=== PATIENT | female | born 1990 | race Caucasian/White ===

== ENCOUNTER 2016-07-27 21:22 | Emergency (ER) | payer MEDICAID, OTHER ==
[~2016-07-27] VITALS: Ht 180.3 cm; Wt 71.6 kg
[~2016-07-27 21:22] MED LIST: ONDA4TAB7 SL; PREN1PAK PO; RANI150T PO
[2016-07-27 21:35] VITALS: BP 103/61; PULSE 87; RESP 18; TEMP 98.3; O2SAT 100
[2016-07-27 23:47] LABS: BLOOD, URINE NEG (NEG); GLUCOSE,URINE NEG (NEG); KETONE, URINE NEG (NEG); NITRITE,URINE NEG (NEG)
[2016-07-27 23:55] LABS: URINE COLOR YELLOW (YELLW/STRAW)
[2016-07-27 23:56] LABS: BACTERIA, URINE MANY /hpf; COMMENT (UR) CULTURE INDICATED; CULTURE IF INDICATED CULTURE INDICATED; RBC, URINE 0-2 /hpf (0-3); SQUAMOUS EPITHELIAL CELL URINE > 8 /hpf (0-5)
[2016-07-28 01:07] VITALS: BP 97/60; PULSE 79; RESP 18; O2SAT 99
[2016-07-28 01:15] LABS: AUTOMATED NEUTROPHIL # 9.4 TH/MM3 (1.8-7.7); BASOPHIL # 0.1 TH/MM3 (0-0.2); BASOPHIL % 0.5 % (0.0-2.0); EOSINOPHIL # 0.1 TH/MM3 (0-0.4); HEMATOCRIT 36.1 % (35.0-46.0); HEMO FLAGS DIFF FINAL; LYMPH % 18.2 % (9.0-44.0); LYMPHOCYTE # 2.3 TH/MM3 (1.0-4.8); MEAN CELL VOLUME 90.1 FL (80.0-100.0); MEAN CORPUSCULAR HEMOGLOBIN 28.8 PG (27.0-34.0); MEAN CORPUSCULAR HGB CONC 31.9 % (32.0-36.0); MONO % 6.7 % (0.0-8.0); NEUT % 73.6 % (16.0-70.0); PLATELET COUNT 299 TH/MM3 (150-450); RED BLOOD COUNT 4.01 MIL/MM3 (4.00-5.30); RED CELL DISTRIBUTION WIDTH 12.2 % (11.6-17.2); WHITE BLOOD COUNT 12.8 TH/MM3 (4.0-11.0)
[2016-07-28] MEDS ORDERED: NITROFURANTOIN MONOHYD MACROCR 100 MG CAP PO ONE (01:45)
[2016-07-28] MEDS ORDERED: MACR100C2 PO (01:50)
--- NOTE | 2016-07-28 01:51 | PD ---
HPI Chief Complaint: Complaint Time Seen by Provider: 00:25 Travel History International Travel<30 days: No Contact w/Intl Traveler<30days: No Traveled to known affect area: No History of Present Illness HPI 26-year-old female presents to the emergency department for abdominal cramping. Patient is 1 para 0 AB 0 at approximately 22 weeks . Last menstrual period was February 22, 2016 with due date of November 28, 2016. Patient was just seen by her [employer]PERATIONS MANAGER 3 weeks ago which time an ultrasound was performed at 19 weeks. Patient has been doing well. Patient has noted some regular pelvic cramping that she states feels somewhat like contractions since . Patient 6 decided to come to the emergency room on Saturday evening. Patient did not contact her [employer] OPERATIONS MANAGER. Patient denies any vaginal discharge or vaginal bleeding. Patient does not note any dysuria frequency urgency flank pain or hematuria. Patient's had no nausea or vomiting. Patient denies fever or chills. Patient states when cramping sensation is present at 5-6/10 in intensity. 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 PFSH Past Medical History Narrative Medical AB 0; no tobacco use, occasional alcohol use; nursing notes reviewed Medical History: Denies Significant Hx Diminished Hearing: No Immunizations Current: Yes Tetanus Vaccination: Unknown Influenza Vaccination: No ?: LMP: 02/22/16 : 1 Para: 0 Past Surgical History Surgical History: No Previous Surgery Social History Alcohol Use: Yes (OCC) Tobacco Use: No (QUIT APR 2015) Substance Use: No Allergies-Medications (Allergen,Severity, Reaction): Coded Allergies: Tramadol (Verified Allergy, Unknown, SKIN REDNESS/ITCHY, 07/09/16) Reported Meds & Prescriptions Reported Meds & Active Scripts Active Macrobid (Nitrofurantoin Monoh/Nitrofur Macro) 100 Mg Cap 100 Mg PO BID 7 Days Citranatal Assure Pack ( W/O Vit A W/ Fe Carbo Pack) 35-1 & 300 Mg Pack 1 Ea PO DAILY 30 day supply. Review of Systems Except as stated in HPI: all other systems reviewed are Neg General / Constitutional: No: Fever, Chills HENT: No: Congestion Cardiovascular: No: Chest Pain or Discomfort Respiratory: No: Shortness of Breath Gastrointestinal: Positive: Abdominal Pain ("contraction like pain"), No: Nausea, Vomiting Genitourinary: No: Hematuria, Pelvic Pain, Flank Pain, Discharge, Vaginal Bleeding Musculoskeletal: No: Myalgias, Arthralgias Neurologic: No: Weakness Psychiatric: No: Anxiety Endocrine: No: Heat Intolerance Hematologic/Lymphatic: No: Easy Bruising Physical Exam Narrative GENERAL: Well-developed well-nourished female in no acute distress no respiratory distress SKIN: Warm and dry. HEAD: Normocephalic. EYES: No scleral icterus. No injection or drainage. NECK: Supple, trachea midline. No JVD or lymphadenopathy. CARDIOVASCULAR: Regular rate and rhythm without murmurs, gallops, or rubs. RESPIRATORY: Breath sounds equal bilaterally. No accessory muscle use. GASTROINTESTINAL: Abdomen soft, non-tender, fundal height 2 fingerbreadths below the umbilicus, nondistended. Pelvic exam, bimanual: Cervical os closed no blood MUSCULOSKELETAL: No cyanosis, or edema. BACK: Nontender without obvious deformity. No CVA tenderness. Data Data Last Documented VS Vital Signs Date Time Temp Pulse Resp B/P Pulse Ox O2 Delivery O2 Flow Rate FiO2 07/28/16 02:10 80 18 109/58 100 Room Air 07/27/16 21:35 98.3 Orders Urinalysis - C+S If Indicated (07/27/16 23:28) Urine Culture (07/27/16 23:30) Complete Blood Count With Diff (07/28/16 00:25) Complete Rh (07/28/16 00:25) Nitrofurantoin Monohyd Macrocr (Macrobid (07/28/16 01:45) Labs Laboratory Tests Test 07/27/16 07/28/16 23:30 01:00 Urine Color YELLOW Urine Turbidity SLIGHT Urine pH 6.0 Urine Specific [place] 1.019 Urine Protein NEG mg/dL Urine Glucose (UA) NEG mg/dL Urine Ketones NEG mg/dL Urine Occult Blood NEG Urine Nitrite NEG Urine Bilirubin NEG Urine Leukocyte Esterase NEG Urine RBC 0-2 /hpf Urine WBC 3-5 /hpf Urine Squamous Epithelial > 8 /hpf Cells Urine Bacteria MANY /hpf Microscopic Urinalysis Comment CULTURE INDICATED White Blood Count 12.8 TH/MM3 Red Blood Count 4.01 MIL/MM3 Hemoglobin 11.5 GM/DL Hematocrit 36.1 % Mean Corpuscular Volume 90.1 FL Mean Corpuscular Hemoglobin 28.8 PG Mean Corpuscular Hemoglobin 31.9 % Concent Red Cell Distribution Width 12.2 % Platelet Count 299 TH/MM3 Mean Platelet Volume 8.0 FL Neutrophils (%) (Auto) 73.6 % Lymphocytes (%) (Auto) 18.2 % Monocytes (%) (Auto) 6.7 % Eosinophils (%) (Auto) 1.0 % Basophils (%) (Auto) 0.5 % Neutrophils # (Auto) 9.4 TH/MM3 Lymphocytes # (Auto) 2.3 TH/MM3 Monocytes # (Auto) 0.9 TH/MM3 Eosinophils # (Auto) 0.1 TH/MM3 Basophils # (Auto) 0.1 TH/MM3 CBC Comment DIFF FINAL Differential Comment Blood Type B POSITIVE Rho(D) Type POSITIVE MDM Medical Decision Making Medical Screen Exam Complete: Yes Emergency Medical Condition: Yes Medical Record Reviewed: Yes Interpretation(s) CBC & BMP Diagram 07/28/16 01:00 Vital Signs Date Time Temp Pulse Resp B/P Pulse Ox O2 Delivery O2 Flow Rate FiO2 07/28/16 01:07 79 18 97/60 99 Room Air 07/28/16 00:38 86 16 07/27/16 21:35 98.3 87 18 103/61 100 UA: many bacteria; cx indicated B(+) Differential Diagnosis [place] contractions, UTI, premature labor Narrative Course Specimens collected CBC, complete Rh, urinalysis Urinalysis shows many bacteria cultures indicated CBC is automated differential mild leukocytosis 12,300 with 73.6% neutrophils by automated differential Bedside ultrasound performed by me with patient's consent tenths abdominal identifies 'intrauterine with good heart activity, rate of 144 Case discussed with on-call OB ED physician Dr. Carranza--no need for transfer to OB ED for monitoring At 2:05 AM no vaginal bleeding; specimen has just now been fire regulator to Viktoria Reed; patient with significant other and does not want to wait for complete our H results and at this time as patient has had no bleeding while outpatient be discharged to home with complete Rh results pending. Procedures Procedure Narrative After informed consent patient was placed in supine position using a curvilinear ultrasound probe in transverse and longitudinal views identified an active single intrauterine with heart rate of 144. Patient tolerated procedure well. Physician Communication Physician Communication discussed with Dr Carranza --no need for monitoring, recommends macrobid or bactrim Diagnosis Primary Impression: Qualified Code: Z3A.22 - 22 weeks gestation of Additional Impression: UTI (urinary tract infection) Qualified Code: N30.00 - Acute cystitis without hematuria Referrals: [facility] 2 days Patient Instructions: General Instructions Additional Instructions: Increase fluid hydration Bedrest and pelvic rest 2 days No work 2 days Follow-up with the copy center associate call office on Saturday to schedule follow-up appointment Return to the emergency department for pain bleeding fever or any concerns Complete course of antibiotic as prescribed Med/Other Pt SpecificInfo: Prescription(s) given Scripts Nitrofurantoin Monohydrate Macrocrystals (Macrobid)100 Mg [id number] Mg PO BID 7 Days Ref 0 Prov:Flor Ramos MD 07/28/16 Disposition: DISCHARGE HOME Condition: Stable Flor Ramos MD Jul 28, 2016 01:51
[2016-07-28 02:10] VITALS: BP 109/58; PULSE 80; RESP 18; O2SAT 100
== END 2016-07-28 02:23 | disposition home or self-care (01) ==
LOC: PHED 21:22
DX: O23.42 Unspecified infection of urinary tract in pregnancy, second trimester (principal); Z3A.22 22 weeks gestation of pregnancy
CPT/HCPCS: 81001; 85025; 86901; 87086; 99284